=== PATIENT | female | born 1960 | race Caucasian/White ===

== ENCOUNTER 2022-11-14 09:17 | Outpatient (REF) | payer OTHER, SELFPAY ==
--- NOTE | ~2022-11-14 | MM_ITS ---
EXAMINATION: MM SCREENING DIGITAL BREAST TOMOSYNTHESIS, BILATERAL CLINICAL INFORMATION: Screening. Asymptomatic. The lifetime risk of breast cancer based on the Tyrer-Cuzick Model is 5.3%. COMPARISON: Mammography: This study is compared with prior mammograms dating back to 2018. TECHNIQUE: Digital breast tomosynthesis is performed in both the craniocaudal and mediolateral oblique views along with computer-aided detection (CAD). Synthesized 2D images are generated from the tomosynthesis. FINDINGS: There are scattered areas of fibroglandular density (ACR BI-RADS breast composition Category b). There are no significant masses, abnormal calcifications, or other abnormalities. MM/MM tomosynthesis screening BI IMPRESSION: No mammographic evidence of malignancy. ASSESSMENT: BI-RADS BI-RADS 1 - Negative RECOMMENDATION: Routine annual mammography screening. 1 year F/U This patient's information was entered into a reminder system with a target due date for their next mammogram.
--- NOTE | ~2022-11-14 | MM_ITS ---
EXAMINATION: BONE DENSITOMETRY CLINICAL INDICATION: Osteoporosis. COMPARISON: Previous BD dated 03/11/2019 and baseline BD dated 07/28/2014. TECHNIQUE: Using a [employer] DXA System (software version: 13.1) manufactured by [employer], dual-energy x-ray absorptiometry was performed of the lumbar spine and left hip. The images are of good technical quality. Summary results are attached. FINDINGS: LEFT FEMUR, NECK: Current: BMD 0.577 g/cm2, Z-score -1.8, T-score -3.3, osteoporosis. Prior: BMD 0.632 g/cm2. Baseline: BMD 0.716 g/cm2. LEFT FEMUR, TOTAL: Current: BMD 0.659 g/cm2, Z-score -1.6, T-score -2.8, osteoporosis, 2.1% decrease from previous, 14.3% decrease from baseline (<5% change is not significant). Prior: BMD 0.673 g/cm2. Baseline: BMD 0.769 g/cm2. AP SPINE L1-L4: Current: BMD 0.852 g/cm2, Z-score -1.1, T-score -2.7, osteoporosis, 3.5% decrease from previous, 10.2% decrease from baseline (<5% change is not significant). Prior: BMD 0.883 g/cm2. Baseline: BMD 0.949 g/cm2. IDENTIFIED RISK FACTORS: Menopause, family history (parental hip fracture), height loss. HISTORY OF FRACTURE: None listed. MEDICATIONS: Vitamin D. MM/XR DEXA axial skeleton IMPRESSION: 1. DIAGNOSIS: Osteoporosis based on the lowest T-score value of -3.3 in the femoral neck applying World Health Organization criteria. 2. 10-YEAR FRACTURE RISK PREDICTION, FRAX: According to the guidelines, FRAX calculation should only be performed on patients in the osteopenia bone density category. Therefore, FRAX was not performed on this patient. 3. Treatment Recommendations: NOF guidelines recommend consideration for treatment in postmenopausal women and men age 50 and older presenting with the following: -A hip or vertebral (clinical or morphometric) fracture. -T-score less than or equal to -2.5 at the femoral neck or spine after appropriate evaluation to exclude secondary causes. -Low bone mass at the hip or spine and a 10-year fracture probability by FRAX of greater than or equal to 3% for hip fracture or greater than or equal to 20% for major osteoporotic fracture based on the [place] adapted WHO algorithm. 4. Other Recommendations: All treatment decisions require clinical judgment and consideration of individual patient factors, including patient preferences, comorbidities, previous drug use, risk factors not captured in the FRAX model (e.g. frailty, falls, vitamin D deficiency, increased bone turnover, interval significant decline in bone density) and possible under or overestimation of fracture risk by FRAX. Additional medical evaluation for secondary cause of low bone mineral density may be appropriate. FUTURE SCAN RECOMMENDATION: People with diagnosed cases of osteoporosis or at high risk for fracture should have regular bone mineral density tests. For patients eligible for Medicare, routine testing is allowed once every 2 years. The testing frequency can be increased to one year for patients who have rapidly progressing disease, those who are receiving or discontinuing medical therapy to restore bone mass, or have additional risk factors.
== END 2022-11-14 09:18 | disposition home or self-care (01) ==
LOC: HO.MAMMO 09:17
PROVIDERS: PCP Internal Medicine Geriatric Medicine; Visit Provider Internal Medicine Geriatric Medicine
DX: Z12.31 Encounter for screening mammogram for malignant neoplasm of breast (principal); Z13.820 Encounter for screening for osteoporosis; Z78.0 Asymptomatic menopausal state; M81.0 Age-related osteoporosis without current pathological fracture
CPT/HCPCS: 77063; 77067; 77080

== ENCOUNTER → 2022-11-14 09:30 | Outpatient (BNV) | payer OTHER, SELFPAY | PROVIDERS: PCP Internal Medicine Geriatric Medicine; Visit Provider Radiology Diagnostic Radiology | DX: Z12.31 Encounter for screening mammogram for malignant neoplasm of breast (principal) | CPT/HCPCS: 77063; 77067 ==

== ENCOUNTER 2023-01-16 08:51 | Outpatient (AMB) | payer OTHER, SELFPAY ==
[2023-01-16 08:57] VITALS: BP 139/81; PULSE 98; BMI 26.0
--- NOTE | 2023-01-16 08:57 | MHC.OFFVIS ---
Intake Vital Signs 01/16/23 08:57 Height 5 ft 1.5 in Weight 139 lb 12.369 oz BMI 26.0 BP 139/81 Blood Pressure Location Lt brachial Position Sitting Pulse 98 Intake Visit Reasons: pre colonoscopy screening Intake Note: Celina presents in office as a new.patient for a colonoscopy screening. PT CC: pt report having no concerns , 2nd colo pt denies any other GI Issues Nitrating Acid Mixer Required: No Accompanied by: Self / Same As Patient Allergies No Known Allergies Allergy (Verified 01/16/23 08:59) HPI pre colonoscopy screening HPI Details 62 year old? female here today for pre colonoscopy screening.? Patient was sent to us by her PCP.? Patient reports she had upper endoscopy and colonoscopy over 10 years ago. Patient does not remember she had any polyps or not, however she states that she was diagnosed with Corona's esophagus. Patient currently is on Nexium. Patient denies any dyspepsia, dysphagia or odynophagia.? Patient denies melena, hematochezia, unintentional weight loss or ribbon like stools. Patient has a family history of colorectal cancer. Patient states that her mother had a colon cancer. Had colon resection. Denies history of difficulty with sedation or anesthesia in the past.? Negative for history of sleep apnea.? Denies any history of cardiac, renal, pulmonary, or hepatic disease.?? No history of infectious? diseases like hepatitis A, B, C, HIV or tuberculosis.? Patient is not on any anticoagulation therapy. [facility] Medical History (Updated 01/16/23 @ 09:32 by Zhanna Hinkle [facility]) History of Corona's esophagus Surgical History (Updated 01/16/23 @ 09:05 by Abimael Hunter) History of suburethral sling procedure Family History (Updated 01/16/23 @ 09:05 by Abimael Hunter) Mother HTN (hypertension) Heart disease Kidney failure Colon cancer Father Stomach ulcer Anemia Arthritis Social History (Updated 01/16/23 @ 09:01 by Abimael Hunter) Household Members: Other Alcohol intake: never Patient Tobacco Use Status: Never used Tobacco Use of substances other than those prescribed or required for medical reasons: No Review of Systems Const Denies weight gain and Denies weight loss ENT Reports no additional complaints, Denies dysphagia and Denies odynophagia Card Reports no additional complaints Resp Reports no additional complaints GI Denies abdominal pain, Denies belching, Denies melena, Denies bloating, Denies change in bowel habits, Denies dysphagia, Denies excessive flatus, Denies dyspepsia, Denies heartburn, Denies diarrhea, Denies loose stools, Denies nausea, Denies odynophagia and Denies vomiting Musc Reports no additional complaints Neuro Reports no additional complaints Psych Reports no additional complaints Endo Reports no additional complaints Physical Exam Vital Signs: Last Vital Signs Pulse 98 01/16/23 08:57 BP 139/81 01/16/23 08:57 BMI result Body Mass Index 26.0 Const General: healthy appearing, no acute distress and well developed Nutritional Appearance: well nourished Orientation/consciousness: patient oriented x3 HEENT Head: Yes normal to inspection, Yes normocephalic and Yes atraumatic Face and sinus: Yes normal facial exam Mouth: Normal oral and palatal mucosa present Throat: Yes posterior oropharynx normal, Yes tonsils normal and Yes uvula midline Eyes General: appearance normal, both eyes and all related structures Neck Neck: Yes normal visual inspection, Yes full ROM and Yes trachea midline Thyroid: Thyroid normal Resp Effort & Inspection: normal respiratory effort, able to speak in complete sentences, no tracheal deviation and symmetric chest movement Auscultation: clear to auscultation bilaterally Cardio Rate: regular rate Heart sounds: S1 normal heart sound present and S2 normal heart sound present GI Inspection: Yes normal to inspection and No distended Palpation (GI): Soft to palpation, not firm, nontender and No hepatosplenomegaly present Auscultation: normal bowel sounds General: Yes no CVA tenderness Back/Spine/Pelvis Back: no CVA tenderness Skin General skin exam: elasticity normal, turgor normal and dry skin Neuro General: patient oriented x3 Psych Appearance: grossly normal Mental Status: mental status grossly normal Speech and movement: Normal speech and movement present Assessment & Plan Assessment & Plan (1) Screen for colon cancer: Code(s): Z12.11 - Encounter for screening for malignant neoplasm of colon Plan: Patient denies any GI, cardiac or respiratory symptoms.? Denies any issues with anesthesia in the past.? Denies any history of sleep apnea.? No history infectious diseases in the past or present.? Not on any anticoagulation therapy.? Patient's mother was a diagnosed with colorectal cancer and had colon resection.? Patient denies melena, hematochezia, unintentional weight loss or ribbon like stools.? Discussed at length the pre-procedure,? prep, diet & medications as well as what to expect prior, during and after the procedure.?? Stressed the importance of good bowel prep. ?Recommended the use of Vaseline or Calmoseptine OTC & baby wipes with bowel movements to promote comfort.? (2) History of Corona's esophagus: Code(s): Z87.19 - Personal history of other diseases of the digestive system Plan: Patient reports that she was diagnosed with Corona's esophagus over 10 years ago upper endoscopy. Procedure was done at [facility]. Patient will try to get records. Will send patient for upper endoscopy as well. Patient has been on Nexium for very long time. Patient denies any dysphagia, dyspepsia or odynophagia. I will see her after the procedure, sooner on as needed basis. Patient is agreeable to this plan and verbalizes understanding of instructions. She was given the opportunity to ask questions and all questions answered. Thank you for allowing me to participate in her care Medications: New bisacodyl (Dulcolax (bisacodyl)) take 2 tabs at noon the day before your colonoscopy 10 mg (2 x 5 mg) PO ONCE 1 day 2 tabs 0RF Z12.11 - Encounter for screening for malignant neoplasm of colon polyethylene glycol 3350 (Miralax) As directed by gastroenterology department at [facility] 238 grams PO ONCE 238 grams 0RF Z12.11 - Encounter for screening for malignant neoplasm of colon Coding Level of Care Code New Pt Level 3 (94405) Diagnoses Screen for colon cancer Z12.11 History of Corona's esophagus Z87.19 Time Spent (min) 40 Comment 30 minutes spent with patient and additional 10 minutes spent reviewing her records
== END 2023-01-16 09:36 | disposition home or self-care (01) ==
PROVIDERS: PCP Internal Medicine Geriatric Medicine; Visit Provider Nurse Practitioner Family
DX: Z12.11 Encounter for screening for malignant neoplasm of colon (principal); Z87.19 Personal history of other diseases of the digestive system; Z01.818 Encounter for other preprocedural examination
CPT/HCPCS: 99203

== ENCOUNTER → 2023-01-16 08:51 | Outpatient (BNVA) | payer OTHER, SELFPAY | PROVIDERS: PCP Internal Medicine Geriatric Medicine; Visit Provider Nurse Practitioner Family ==

== ENCOUNTER 2023-06-12 10:01 | Outpatient (REF) | payer OTHER, SELFPAY ==
[2023-06-12 12:32] LABS: Alanine Aminotransferase 20 U/L (0-31); Albumin Level 4.2 g/dL (3.5-5.0); Alkaline Phosphatase 82 U/L (39-117); Anion Gap 13 (12-20); Aspartate Amino Transferase 18 U/L (5-31); Bilirubin Total 0.5 mg/dL (0.0-1.0); Blood Urea Nitrogen 11 mg/dL (9-16); Calcium 9.1 mg/dL (8.4-10.2); Carbon Dioxide 25 mmol/L (22-29); Chloride 107 mmol/L (96-108); Cholesterol 183 mg/dL (<200); Estimated Glomerular Filt Rate > 60; Glucose Random 96 mg/dL (60-115); HDL Cholesterol 66 mg/dL (>40); LDL Cholesterol Calculated 101 mg/dL (<100); Potassium 3.7 mmol/L (3.3-5.1); Sodium 141 mmol/L (135-145); Total Protein 7.2 g/dL (6.5-8.0); Triglycerides 82 mg/dL (<150)
== END 2023-06-12 10:02 | disposition home or self-care (01) ==
LOC: HO.HHCL 10:01
PROVIDERS: Visit Provider Internal Medicine Geriatric Medicine
DX: Z00.00 Encounter for general adult medical examination without abnormal findings (principal); M81.0 Age-related osteoporosis without current pathological fracture; E78.5 Hyperlipidemia, unspecified
CPT/HCPCS: 36415; 80053; 80061

== ENCOUNTER 2023-06-12 11:06 | Day surgery (SDC) | payer OTHER, SELFPAY ==
[2023-06-10 15:03] VITALS: BMI 27.7
[2023-06-12 12:08] VITALS: BMI 27.1
[2023-06-12 12:33] VITALS: BP 138/79; PULSE 92; RESP 16; TEMP 36.7; O2SAT 96
[2023-06-12] MEDS: Lactated Ringers 1,000 ML 80 ML IVCONT (12:36)
--- NOTE | 2023-06-12 12:41 | HO.ANESPROP2 ---
[facility] Active Problems Active Problems: All Active Problems (Updated 06/10/23 @ 15:03 by Renae Mejia RN) History of Corona's esophagus (Acute) Past Medical History Medical History (Updated 06/10/23 @ 15:03 by Renae Mejia RN) Osteoporosis Elevated cholesterol History of Corona's esophagus Family History Family History (Updated 01/16/23 @ 09:05 by Abimael Hunter) Mother HTN (hypertension) Heart disease Kidney failure Colon cancer Father Stomach ulcer Anemia Arthritis Surgical History Surgical History (Updated 01/16/23 @ 09:05 by Abimael Hunter) History of suburethral sling procedure History of Problems with Anesthesia: No Social History Social History (Updated 01/16/23 @ 09:01 by Abimael Hunter) Household Members: Other Alcohol intake: never Patient Tobacco Use Status: Never used Tobacco Use of substances other than those prescribed or required for medical reasons: No Are you DNR?: No Advance Directives: No Advance Directives Information Provided: Yes Meds Allergies Allergy/AdvReac Type Severity Reaction Status Date / Time No Known Allergies Allergy Verified 06/12/23 12:16 Active Medications: Current Medications Lactated Ringer's (Lr) 1,000 mls @ 80 mls/hr IVCONT .[id number] SATINDER Last Admin: 06/12/23 12:36 Dose: 80 mls/hr Home Medications Medication Instructions Recorded Confirmed Last Taken Type atorvastatin 20 mg tablet 20 mg PO DAILY 01/16/23 06/12/23 06/12/23 History esomeprazole magnesium 20 mg 20 mg PO DAILY 01/16/23 06/12/23 06/12/23 History capsule,delayed release (Nexium) Exam Height,Weight and Vital Signs: Height 5 ft Weight 63.049 kg Last Vital Signs Temp 98.1 F 06/12/23 12:33 Pulse 92 06/12/23 12:33 Resp 16 06/12/23 12:33 BP 138/79 06/12/23 12:33 Pulse Ox 96 06/12/23 12:33 O2 Del Method Room Air 06/12/23 12:33 Airway Mallampati Class: II TM Dist: >3cm Neck ROM: Full Loose/Missing/Broken Teeth: No Heart: RRR Lungs: CTA Assessment and Plan Assessment Anesthesia Assessment: Anesthesia Plan Discussed and Chart Reviewed Final Anesthetic Review History of Problems with Anesthesia: No NPO: Yes ASA Class: II Final Preanesthetic Review: Meds/Allgs Chart Reviewed, Consent Obtained/Reviewed and Anes Risks/Benef Reviewed Patient Risk: Low Procedure Risk: Intermediate Anesthetic Plan Anesthetic Plan: MAC: Disposition: Standard PACU
--- NOTE | 2023-06-12 13:57 | MHC.SHP ---
Pre-Procedural Eval Section A - 24 Hr Update-Section A only Date of Service: 06/12/23 The patient is an INPATIENT: No The patient has been examined within 24 hours of the surgical procedure. The History & Physical has been completed within 30 days and I have reviewed it.: No Section B - Complete if H&P > 30 days Chief Complaint: Colon cancer screening, follow-up of Corona's Relevant Family History (Specify if Yes): Yes Relevant Social History: None Present Medications: see Short Stay Collaborative assessment Medical History: Significant History (Osteoporosis, elevated cholesterol, Corona's esophagus) History of Previous Operations: Relevant previous surgery/procedure and date(s) (History of suburethral sling procedure) Allergies: Allergies Allergy/AdvReac Type Severity Reaction Status Date / Time No Known Allergies Allergy Verified 06/12/23 12:16 Review of Systems Sugical H&P ROS: Negative: Constitution, Cardiovascular, Respiratory and Gastrointestinal Exam Surgical H&P Exam: Normal: Heart, Normal: Lungs, Normal: Extremities and Normal: Abdomen Plan Diagnosis/Plan: Unchanged I have reviewed the history and physical and performed a pertinent physical examination on my patient. No changes have occurred unless specified. Time Spent With Patient Time: Total time managing care of this patient today ____ minutes.
--- NOTE | 2023-06-12 14:26 | P.OP_ITS ---
Operative Note Operative Note Date of Service: 06/12/23 Narrative: FLEXIBLE TRANSORAL UPPER GASTROINTESTINAL ENDOSCOPY WITH BIOPSIES AND COLONOSCOPY TILL CECUM WITH BIOPSIES AND SNARE POLYPECTOMY Pre-op diagnosis: Colon cancer screening, follow-up of Corona's Post-op diagnosis: GERD, gastritis, gastric polyps, colon polyps, diverticulosis? Endoscopist:? Odette Hayes MD Anesthesia:?MAC UPPER ENDOSCOPY Consent: Indications for the procedure and potential complications of bleeding, perforation, reaction to medications and missed diagnosis were discussed with the patient and informed consent was obtained. Instrument: Olympus GIF H 190 mid size upper endoscope Monitoring: Vital signs and clinical assessment, continuous EKG monitoring, Pulse oximetry, Carbon Dioxide monitoring and blood pressure monitoring were done throughout the procedure. Procedure: The patient was placed in the left lateral decubitis position and pre-procedure medications were administered and a bite block was placed. The endoscope was inserted into the mouth and advanced under direct vision to the third part of duodenum. A careful inspection was made as the upper endoscope was withdrawn including a retroflexed examination of the proximal stomach; Findings and interventions are described below. Findings: Larynx: Normal Esophagus: GE junction at 35 cms. Irregular Z line with two 5-6 mm tongues of possible Corona's - biopsies were obtained. Stomach: A few 5 to 10 mm benign appearing polyps in the gastric body - biopsied. Moderate diffuse gastric erythema. Biopsies were obtained. Grade 2 flap valve on retroflexed examination of the cardia. Duodenum: Normal bulb and descending duodenum Intervention: Biopsies as noted above COLONOSCOPY PROCEDURE NOTE Consent: Indications for the procedure and potential complications of bleeding, perforation, reaction to medications and missed diagnosis were discussed with the patient and informed consent was obtained. Instrument: Olympus PCF H 190 L variable stiffness pediatric colonoscope Monitoring: Vital signs and clinical assessment, intermittent blood pressure monitoring, continuous EKG monitoring, Pulse oximetry and Carbon Dioxide monitoring were done throughout the procedure. Colon withdrawl time was 26 minutes. Procedure: The patient was placed in the left lateral decubitis position and pre-procedure medications were administered. After a digital rectal examination of the ano-rectum, the video colonoscope was inserted into the rectum and advanced through the colon to the cecum. The colonoscope was slowly withdrawn in a retrograde panoramic fashion and the colon mucosa was carefully examined including a retroflexed view of the rectum. Findings and interventions are described below. Procedure Difficulty: : Without difficulty Findings: Terminal Ileum: Not evaluated Cecum: A 3-4 mm sessile polyp - removed with a cold biopsy. Ascending Colon: A 10-12 mm sessile polyp on a short pedicle - removed with a hot snare. Polypectomy site was closed with 1 hemoclip. A 10-12 mm flat polyp at 65 cms. Polyp was raised with 5 cc of Eleview and removed with a hot snare. Polypectomy site was closed with 1 hemoclip. Transverse Colon: Normal Descending Colon: Moderate diverticulosis Sigmoid Colon: A 4-5 mm sessile polyp - removed with a cold biopsy Moderate diverticulosis Rectum: Normal Ano-rectum: Moderate internal hemorrhoids Colon preparation: Good after copious irrigation Impression and Post Procedure Diagnosis: Endoscopy Findings: ESOPHAGUS: Irregular Z line with two 5-6 mm tongues of possible Corona's - biopsies were obtained STOMACH: Diffuse gastritis and benign appearing gastric polyps Colonoscopy Findings: Two small and two medium sized polyps removed Moderate diverticulosis seen in the left colon Plan: Await pathology results Patient has an appointment on 06/26/23 in the GI Clinic with Zhanna Hinkle FNP- [facility]. Repeat Colonoscopy interval based on path results - in 3-5 years if polyps are adenomatous and 10 years if polyps are hyperplastic. Above findings were reviewed with the patient and Gastric polyps, colon polyps and diverticulosis handouts were given in the discharge area
[2023-06-12 15:10] VITALS: BP 108/69; PULSE 76; RESP 16; TEMP 37.1; O2SAT 99
[2023-06-12 15:25] VITALS: BP 130/73; PULSE 77; RESP 16; TEMP 36.3; O2SAT 99
== END 2023-06-12 15:50 | disposition home or self-care (01) ==
PROVIDERS: PCP Internal Medicine Geriatric Medicine; Visit Provider Internal Medicine Gastroenterology
PROC: (CPT 43239; principal; 2023-06-12 13:50)
DX: K29.60 Other gastritis without bleeding (principal); K31.7 Polyp of stomach and duodenum; K22.9 Disease of esophagus, unspecified; K21.9 Gastro-esophageal reflux disease without esophagitis; Z87.19 Personal history of other diseases of the digestive system; Z12.11 Encounter for screening for malignant neoplasm of colon; D12.2 Benign neoplasm of ascending colon; K57.30 Diverticulosis of large intestine without perforation or abscess without bleeding; K64.8 Other hemorrhoids; E78.5 Hyperlipidemia, unspecified; Z79.02 Long term (current) use of antithrombotics/antiplatelets; Z79.899 Other long term (current) drug therapy
CPT/HCPCS: 43239; 45385; 45380; 45381; 88305; 88313; 88342; J2704

== ENCOUNTER → 2023-06-12 11:06 | Outpatient (BNV) | payer OTHER, SELFPAY | PROVIDERS: PCP Internal Medicine Geriatric Medicine; Visit Provider Internal Medicine Gastroenterology | DX: Z12.11 Encounter for screening for malignant neoplasm of colon (principal); K21.9 Gastro-esophageal reflux disease without esophagitis; K31.7 Polyp of stomach and duodenum; K57.30 Diverticulosis of large intestine without perforation or abscess without bleeding; D12.0 Benign neoplasm of cecum; D12.2 Benign neoplasm of ascending colon; D12.5 Benign neoplasm of sigmoid colon; K64.8 Other hemorrhoids | CPT/HCPCS: 43239; 45380; 45381; 45385 ==

== ENCOUNTER 2023-06-26 09:52 | Outpatient (AMB) | payer OTHER, SELFPAY ==
--- NOTE | 2023-06-26 10:04 | A.OFFVIS_ITS ---
Intake Vital Signs 06/26/23 10:29 Height 5 ft BP 117/72 Blood Pressure Location Lt brachial Position Sitting Pulse 82 Intake Visit Reasons: s/p egd/colon Intake Note: Pt c/o; reports no complaints at this time. Information Officer Required: No Accompanied by: Self / Same As Patient Allergies No Known Allergies Allergy (Verified 06/26/23 10:30) HPI s/p egd/colon HPI Details LAST VISIT: Screen for colon cancer Patient denies any GI, cardiac or respiratory symptoms.? Denies any issues with anesthesia in the past.? Denies any history of sleep apnea.? No history infectious diseases in the past or present.? Not on any anticoagulation therapy.? Patient's mother was a diagnosed with colorectal cancer and had colon resection.? Patient denies melena, hematochezia, unintentional weight loss or ribbon like stools.? Discussed at length the pre-procedure,? prep, diet & medications as well as what to expect prior, during and after the procedure.?? Stressed the importance of good bowel prep. ?Recommended the use of Vaseline or Calmoseptine OTC & baby wipes with bowel movements to promote comfort.? History of Corona's esophagus Patient reports that she was diagnosed with Corona's esophagus over 10 years ago upper endoscopy. Procedure was done at [facility]. Patient will try to get records. Will send patient for upper endoscopy as well. Patient has been on Nexium for very long time. Patient denies any dysphagia, dyspepsia or odynophagia. I will see her after the procedure, sooner on as needed basis. Patient is agreeable to this plan and verbalizes understanding of instructions. She was given the opportunity to ask questions and all questions answered. ? Thank you for allowing me to participate in her care Plan Medications New bisacodyl (Dulcolax (bisacodyl)) take 2 tabs at noon the day before your colonoscopy 10 mg (2 x 5 mg) PO ONCE 1 day 2 tabs 0RF Z12.11 - Encounter for screening for malignant neoplasm of colon polyethylene glycol 3350 (Miralax) As directed by gastroenterology department at [facility] 238 grams PO ONCE 238 grams 0RF Z12.11 - Encounter for screening for malignant neoplasm of colon UPPER ENDOSCOPY AND COLONOSCOPY Upper endoscopy Findings: Larynx: Normal Esophagus: GE junction at 35 cms. Irregular Z line with two 5-6 mm tongues of possible Corona's - biopsies were obtained. Stomach: A few 5 to 10 mm benign appearing polyps in the gastric body - biopsied. Moderate diffuse gastric erythema. Biopsies were obtained. Grade 2 flap valve on retroflexed examination of the cardia. Duodenum: Normal bulb and descending duodenum Intervention: Biopsies as noted above Colonoscopy Findings: Terminal Ileum: Not evaluated Cecum: A 3-4 mm sessile polyp - removed with a cold biopsy. Ascending Colon: A 10-12 mm sessile polyp on a short pedicle - removed with a hot snare. Polypectomy site was closed with 1 hemoclip. A 10-12 mm flat polyp at 65 cms. Polyp was raised with 5 cc of Eleview and removed with a hot snare. Polypectomy site was closed with 1 hemoclip. Transverse Colon: Normal Descending Colon: Moderate diverticulosis Sigmoid Colon: A 4-5 mm sessile polyp - removed with a cold biopsy Moderate diverticulosis Rectum: Normal Ano-rectum: Moderate internal hemorrhoids Colon preparation: Good after copious irrigation Impression and Post Procedure Diagnosis: Endoscopy Findings: ESOPHAGUS: Irregular Z line with two 5-6 mm tongues of possible Corona's - biopsies were obtained STOMACH: Diffuse gastritis and benign appearing gastric polyps Colonoscopy Findings: Two small and two medium sized polyps removed Moderate diverticulosis seen in the left colon Plan: Await pathology results Repeat Colonoscopy interval based on path results - in 3-5 years if polyps are adenomatous and 10 years if polyps are hyperplastic. PATHOLOGY RESULTS Diagnosis A. Stomach, antrum, biopsy: - Antral-type mucosa with moderate chron ic inactive inflammation - Rare forms consistent with H. pylori i dentified. B. Stomach, polyp: - Hyperplastic mucosal polyp with inflam matory changes; negative for dysplasia. - Rare forms consistent with H. pylori i dentified. C. Stomach, body, biopsy: Oxyntic mucosa with severe chronic active inflammation; negative for H. pylori. D. Esophagus, distal, biopsy: - Cardiofundic-type mucosa with moderate chronic active inflammation; no intestinal metaplasia seen. - Active esophagitis (maximum eosinophil count 3 per high powered field). E. Cecum, polypectomy: Inflammatory polyp. F. Colon, ascending, polypectomy: Tubular adenoma; negative for high-grade dysplasia or carcinoma. G. Colon, ascending at 65 cm, polypectomy: Colonic mucosa with mild surface hyperplastic changes. H. Colon, transverse, polypectomy: Colonic mucosa with mild surface hyperplastic changes TODAY'S VISIT: Patient is here today for follow-up and to discuss upper endoscopy and colonoscopy results. Patient denies any ill effects from the prep, anesthesia or procedure itself. Biopsy results discussed with patient. Medium size tubular adenoma without high-grade dysplasia or carcinoma found in ascending colon. Cecum, and transverse colon hyperplastic polyp. Patient reports occasional acid reflux, states that Nexium has been helpful. H pylori found with mild esophagitis. Barretts not identified on biopsy. Patient reports occasional dyspepsia without dysphagia or odynophagia. Patient denies any melena, hematochezia, unintentional weight loss or ribbon like stools. Patient reports that she has been moving her bowels well without any issues. [facility] Medical History (Updated 06/28/23 @ 16:23 by Zhanna Hinkle [facility]) Diverticulosis Tubular adenoma of colon Osteoporosis Elevated cholesterol History of Corona's esophagus Surgical History History of suburethral sling procedure Family History Mother HTN (hypertension) Heart disease Kidney failure Colon cancer Father Stomach ulcer Anemia Arthritis Social History Household Members: Other Alcohol intake: never Patient Tobacco Use Status: Never used Tobacco Review of Systems Const Denies weight gain and Denies weight loss ENT Reports no additional complaints, Denies dysphagia and Denies odynophagia Card Reports no additional complaints Resp Reports no additional complaints GI Denies abdominal pain, Denies belching, Denies melena, Reports bloating (Occasional), Denies hematochezia, Denies change in bowel habits, Denies dyspha robert, Denies excessive flatus, Reports dyspepsia (Occasional), Reports heartburn (Occasional), Denies diarrhea, Denies loose stools, Denies nausea, Denies odynophagia and Denies vomiting Reports no additional complaints Musc Reports no additional complaints Neuro Reports no additional complaints Psych Reports no additional complaints Endo Reports no additional complaints Physical Exam Vital Signs: Last Vital Signs Pulse 82 06/26/23 10:29 BP 117/72 06/26/23 10:29 Const General: healthy appearing, no acute distress and well developed Nutritional Appearance: well nourished Orientation/consciousness: patient oriented x3 Resp Effort & Inspection: normal respiratory effort, able to speak in complete sentences, no tracheal deviation and symmetric chest movement Auscultation: clear to auscultation bilaterally Cardio Rate: regular rate GI Inspection: Yes normal to inspection and No distended Palpation (GI): Soft to palpation, not firm, nontender and No hepatosplenomegaly present Auscultation: normal bowel sounds General: Yes no CVA tenderness Back/Spine/Pelvis Back: no CVA tenderness Skin General skin exam: elasticity normal, turgor normal and dry skin Neuro General: patient oriented x3 Psych Appearance: grossly normal Mental Status: mental status grossly normal Assessment & Plan Assessment & Plan (1) Helicobacter pylori (H. pylori): Code(s): A04.8 - Other specified bacterial intestinal infections (2) History of Corona's esophagus: Code(s): Z87.19 - Personal history of other diseases of the digestive system (3) Gastritis: Code(s): K29.70 - Gastritis, unspecified, without bleeding Qualifiers: Gastritis type: other gastritis Chronicity: chronic Gastritis b leeding: without bleeding Qualified Code(s): K29.50 - Unspecified chronic gastritis without bleeding (4) GERD (gastroesophageal reflux disease): Code(s): K21.9 - Gastro-esophageal reflux disease without esophagitis Qualifiers: Esophagitis presence: with esophagitis Esophagitis bleeding: without hemorrhage Qualified Code(s): K21.00 - Gastro-esophageal reflux disease with esophagitis, without bleeding (5) Tubular adenoma of colon: Code(s): D12.6 - Benign neoplasm of colon, unspecified (6) Diverticulosis: Code(s): K57.90 - Diverticulosis of intestine, part unspecified, without perforation or abscess without bleeding Plan Chronic gastritis most likely caused by H pylori bacteria. Patient will be treated with quadruple therapy and we will retest her for eradication of bacteria. Patient will increase Nexium to twice a day. Esophagitis with small eosinophilic count. Will send patient for RAST allergen testing. She was encouraged to avoid dietary triggers and late night snacking. Staying upright for minimal 3 hours after meals discussed with patient. Tubular adenoma without high-grade dysplasia found larger than 1 cm. Patient will return for colonoscopy in 3-5 years, sooner if clinically necessary. Patient will return in 6 weeks to recheck for H pylori. Patient will stop Nexium 2 weeks before the test. One hr NPO before testing. Patient denies any melena, hematochezia, unintentional weight loss or ribbon like stools. Moderate diverticulosis in sigmoid colon. Patient was encouraged to increase fiber in her diet. List of food high in fiber given to patient. Patient is agreeable to this plan and verbalizes understanding of instructions. She was given the opportunity to ask questions and all questions answered. Thank you for allowing me to participate in her care Orders: Orders Rast Allergen 06/26/23 K21.9 - Gastro-esophageal reflux disease without esophagitis Medications: New bismuth subsalicylate 2 tabs PO QID 14 days 112 tabs 0RF A04.8 - Other specified bacterial intestinal infections metronidazole 1,000 mg (2 x 500 mg) PO BID 56 tabs 0RF A04.8 - Other specified bacterial intestinal infections tetracycline 1,000 mg (2 x 500 mg) PO Q12H 56 caps 0RF A04.8 - Other specified bacterial intestinal infections Changed From esomeprazole magnesium (Nexium) 20 mg PO DAILY A04.8 - Other specified bacterial intestinal infections To esomeprazole magnesium (Nexium) 20 mg PO BID 14 days 28 caps 0RF A04.8 - Other specified bacterial intestinal infections Coding Level of Care Code Est Pt Level 4 (59820) Diagnoses Helicobacter pylori (H. pylori) A04.8 History of Corona's esophagus Z87.19 Other chronic gastritis without hemorrhage K29.50 Gastritis type: other gastritis Chronicity: chronic Gastritis bleeding: without bleeding Gastroesophageal reflux disease with esophagitis without hemorrhage K21.00 Esophagitis presence: with esophagitis Esophagitis bleeding: without hemorrhage Tubular adenoma of colon D12.6 Diverticulosis K57.90 Time Spent (min) 35 Comment 25 minutes spent with patient and additional 10 minutes spent reviewing her records
[2023-06-26 10:29] VITALS: BP 117/72; PULSE 82
== END 2023-06-26 10:51 | disposition home or self-care (01) ==
PROVIDERS: PCP Internal Medicine Geriatric Medicine; Visit Provider Nurse Practitioner Family
DX: A04.8 Other specified bacterial intestinal infections (principal); Z87.19 Personal history of other diseases of the digestive system; K29.50 Unspecified chronic gastritis without bleeding; K21.00 Gastro-esophageal reflux disease with esophagitis, without bleeding; D12.6 Benign neoplasm of colon, unspecified; K57.90 Diverticulosis of intestine, part unspecified, without perforation or abscess without bleeding
CPT/HCPCS: 99214

== ENCOUNTER 2023-06-26 09:52 | Outpatient (REF) | payer OTHER, SELFPAY | END 2023-06-26 09:53 | disposition home or self-care (01) | LOC: HO.LAB 09:52 | PROVIDERS: PCP Internal Medicine Geriatric Medicine; Visit Provider Nurse Practitioner Family | DX: Z91.09 Other allergy status, other than to drugs and biological substances (principal); K21.9 Gastro-esophageal reflux disease without esophagitis | CPT/HCPCS: 36415; 86003 ==

== ENCOUNTER 2023-08-07 10:43 | Outpatient (AMB) | payer OTHER, SELFPAY ==
--- NOTE | 2023-08-07 10:49 | A.OFFVIS_ITS ---
Intake Vital Signs 08/07/23 10:50 Height 5 ft Weight 138 lb BMI 26.9 BP 115/69 Blood Pressure Location Lt brachial Position Sitting Pulse 98 Intake Visit Reasons: 6 week follow up Intake Note: Patient 6 week follow up for Patient denies any GI issues. 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 pylori) History of Corona's esophagus Gastritis GERD (gastroesophageal reflux disease) Tubular adenoma of colon Diverticulosis Plan Chronic gastritis most likely caused by H pylori bacteria. Patient will be treated with quadruple therapy and we will retest her for eradication of bacteria. Patient will increase Nexium to twice a day. Esophagitis with small eosinophilic count. Will send patient for RAST allergen testing. She was encouraged to avoid dietary triggers and late night snacking. Staying upright for minimal 3 hours after meals discussed with patient. Tubular adenoma without high-grade dysplasia found larger than 1 cm. Patient will return for colonoscopy in 3-5 years, sooner if clinically necessary. Patient will return in 6 weeks to recheck for H pylori. Patient will stop Nexium 2 weeks before the test. One hr NPO before testing. Patient denies any melena, hematochezia, unintentional weight loss or ribbon like stools. Moderate diverticulosis in sigmoid colon. Patient was encouraged to increase fiber in her diet. List of food high in fiber given to patient. Patient is agreeable to this plan and verbalizes understanding of instructions. She was given the opportunity to ask questions and all questions answered. ? Thank you for allowing me to participate in her care Orders Orders Rast Allergen 06/26/23 K21.9 Medications New bismuth subsalicylate 2 tabs PO QID 14 days 112 tabs 0RF A04.8 metronidazole 1,000 mg (2 x 500 mg) PO BID 56 tabs 0RF A04.8 tetracycline 1,000 mg (2 x 500 mg) PO Q12H 56 caps 0R F A04.8 Changed Changed From esomeprazole magnesium (Nexium) 20 mg PO DAILY A04.8 Changed To esomeprazole magnesium (Nexium) 20 mg PO BID 14 days 28 caps 0RF A04.8 TODAY'S VISIT: Patient is here today for follow-up and for H pylori retesting. Patient states that she completed 2 week treatment of antibiotics to treat H pylori found on upper endoscopy confirmed by biopsy. Patient was of Nexium for 2 weeks except she took Nexium this morning. Patient states that she forgot. Patient reports to be feeling well. Denies any dyspepsia, dysphagia or odynophagia. Denies any abdominal pain or discomfort. Patient denies any GI concerning symptoms today. [facility] Medical History (Updated 06/28/23 @ 16:23 by Zhanna Hinkle, [facility]) Diverticulosis Tubular adenoma of colon Osteoporosis Elevated cholesterol History of Corona's esophagus Surgical History History of suburethral sling procedure Family History Mother HTN (hypertension) Heart disease Kidney failure Colon cancer Father Stomach ulcer Anemia Arthritis Social History Household Members: Other Alcohol intake: never Patient Tobacco Use Status: Never used Tobacco Review of Systems Const Denies weight gain and Denies weight loss ENT Reports no additional complaints, Denies dysphagia and Denies odynophagia Card Reports no additional complaints Resp Reports no additional complaints GI Denies abdominal pain, Denies belching, Denies melena, Denies bloating, Denies change in bowel habits, Denies dysphagia, Denies excessive flatus, Denies dyspepsia, Denies heartburn, Denies diarrhea, Denies loose stools, Denies nausea, Denies odynophagia and Denies vomiting Musc Reports no additional complaints Neuro Reports no additional complaints Psych Reports no additional complaints Endo Reports no additional complaints Physical Exam Vital Signs: Last Vital Signs Pulse 98 08/07/23 10:50 BP 115/69 08/07/23 10:50 BMI result Body Mass Index 26.9 Const General: healthy appearing, no acute distress and well developed Nutritional Appearance: well nourished Orientation/consciousness: patient oriented x3 Resp Effort & Inspection: normal respiratory effort, able to speak in complete sent ences, no tracheal deviation and symmetric chest movement Auscultation: clear to auscultation bilaterally Cardio Rate: regular rate GI Inspection: Yes normal to inspection and No distended Palpation (GI): Soft to palpation, not firm, nontender and No hepatosplenomegaly present Auscultation: normal bowel sounds General: Yes no CVA tenderness Back/Spine/Pelvis Back: no CVA tenderness Skin General skin exam: elasticity normal, turgor normal and dry skin Neuro General: patient oriented x3 Psych Appearance: grossly normal Mental Status: mental status grossly normal Affect: normal affect Assessment & Plan Assessment & Plan (1) History of Corona's esophagus: Code(s): Z87.19 - Personal history of other diseases of the digestive system (2) Helicobacter pylori (H. pylori): Code(s): A04.8 - Other specified bacterial intestinal infections (3) Gastritis: Code(s): K29.70 - Gastritis, unspecified, without bleeding Qualifiers: Gastritis type: unspecified gastritis Chronicity: chronic Gastritis bleeding: without bleeding Qualified Code(s): K29.50 - Unspecified chronic gastritis without bleeding (4) GERD (gastroesophageal reflux disease): Code(s): K21.9 - Gastro-esophageal reflux disease without esophagitis Qualifiers: Esophagitis presence: with esophagitis Esophagitis bleeding: without hemorrhage Qualified Code(s): K21.00 - Gastro-esophageal reflux disease with esophagitis, without bleeding Plan Patient will hold Nexium for now till she does breath test to check for H pylori. She can take famotidine, however stop famotidine 24-48 hours before be test. Will treat empirically if positive. Continue avoiding dietary triggers and late night snacking. Staying upright for minimum 3 hours after meals discussed with patient. Patient will return to our office in 6 months, sooner on as needed basis. She is agreeable to this plan and verbalizes understanding of instructions. She was given the opportunity to ask questions and all questions answered. Thank you for allowing me to participate in her care Medications: New famotidine (Pepcid) 20 mg PO DAILY 30 tabs 3RF K21.9 - Gastro-esophageal reflux disease without esophagitis Changed From esomeprazole magnesium (Nexium) 20 mg PO BID 14 days 28 caps 0RF A04.8 - Other specified bacterial intestinal infections To esomeprazole magnesium (Nexium) 20 mg PO DAILY 30 caps 2RF A04.8 - Other specified bacterial intestinal infections Discontinued bismuth subsalicylate Discontinued Reason: Doctor's Order 2 tabs PO QID 14 days 112 tabs 0RF A04.8 - Other specified bacterial intestinal infections metronidazole Discontinued Reason: Doctor's Order 1,000 mg (2 x 500 mg) PO BID 56 tabs 0RF A04.8 - Other specified bacterial intestinal infections tetracycline Discontinued Reason: Doctor's Order 1,000 mg (2 x 500 mg) PO Q12H 56 caps 0RF A04.8 - Other specified bacterial intestinal infections Coding Level of Care Code Est Pt Level 3 (30920) Diagnoses History of Corona's esophagus Z87.19 Helicobacter pylori (H. pylori) A04.8 Chronic gastritis without bleeding, unspecified gastritis type K29.50 Gastritis type: unspecified gastritis Chronicity: chronic Gastritis bleeding: without bleeding Gastroesophageal reflux disease with esophagitis without hemorrhage K21.00 Esophagitis presence: with esophagitis Esophagitis bleeding: without hemorrhage Time Spent (min) 25 Comment 15 minutes spent with patient and additional 10 minutes spent reviewing her records
[2023-08-07 10:50] VITALS: BP 115/69; PULSE 98; BMI 26.9
== END 2023-08-07 11:32 | disposition home or self-care (01) ==
PROVIDERS: PCP Internal Medicine Geriatric Medicine; Visit Provider Nurse Practitioner Family
DX: Z87.19 Personal history of other diseases of the digestive system (principal); A04.8 Other specified bacterial intestinal infections; K29.50 Unspecified chronic gastritis without bleeding; K21.00 Gastro-esophageal reflux disease with esophagitis, without bleeding
CPT/HCPCS: 99213

== ENCOUNTER → 2023-08-07 10:43 | Outpatient (BNVA) | payer OTHER, SELFPAY | PROVIDERS: PCP Internal Medicine Geriatric Medicine; Visit Provider Nurse Practitioner Family ==

== ENCOUNTER 2023-08-21 09:12 | Outpatient (AMB) | payer OTHER, SELFPAY ==
--- NOTE | 2023-08-21 09:24 | AM.OFFVISNUR ---
Intake Intake Visit Reasons: H.pylori breath test Allergies No Known Allergies Allergy (Verified 08/07/23 10:48) Nursing Note Patient presents for collection of H Pylori breath test. Patient has been fasting for 1 hour (nothing to eat, drink, no chewing gum or smoking) has not taken any antacid medication for at least 2 weeks and has no allergies to artificial sweeteners.?? Coding Level of Care Code Established Pt Est Pt Level 1 (29658) Patient Type Established Medical Decision Making Straight Forward Diagnoses History of Corona's esophagus Z87.19 Assessment & Plan Assessment & Plan (1) History of Corona's esophagus: Code(s): Z87.19 - Personal history of other diseases of the digestive system Category: Medical Plan Patient presents for collection of H Pylori breath test. Patient has been fasting for 1 hour (nothing to eat, drink, no chewing gum or smoking) has not taken any antacid medication for at least 2 weeks and has no allergies to artificial sweeteners.???This test checks for an overgrowth of bacteria in your stomach. We all have bacteria but some may have more than others. It is treatable. if the test comes back negative there is nothing else to do. If the test result is positive we will treat you with 2 antibiotics and a medication to decrease the acid in your stomach (PPI) for 2 weeks. Two weeks after you have completed the treatment we will retest you to make sure the overgrowth has resolved. Patient Instructions: Process for specimen collection and reason for testing was explained to the patient. Specimen collection. Patient instructed to take a deep breath and then exhale into the blue bag, filling it up as much as possible. Patient instructed to drink a mixture of water and the artificial sweetener with a straw. A 15 minute wait period was observed. Patient instructed to take a deep breath and then exhale into the pink bag, filling it up as much as possible.??
== END 2023-08-21 09:25 | disposition home or self-care (01) ==
PROVIDERS: PCP Internal Medicine Geriatric Medicine; Visit Provider Nurse Practitioner Family
DX: Z87.19 Personal history of other diseases of the digestive system (principal)

== ENCOUNTER 2023-08-21 09:12 | Outpatient (REF) | payer OTHER, SELFPAY ==
[2023-08-23 12:45] LABS: H Pylori Breath Test Negative (Negative)
== END 2023-08-21 09:13 | disposition home or self-care (01) ==
LOC: HO.LNP 09:12
PROVIDERS: PCP Internal Medicine Geriatric Medicine; Visit Provider Nurse Practitioner Family
DX: Z87.19 Personal history of other diseases of the digestive system (principal)
CPT/HCPCS: 83013; 99211

== ENCOUNTER 2023-09-22 09:16 | Outpatient (REF) | payer OTHER, SELFPAY ==
[2023-09-22 11:44] LABS: Appearance Urine Cloudy; Color Urine Yellow; Glucose Urine UA Negative (Negative); Leukocyte Esterase Urine Large (3+) (Negative); Nitrite Urine Negative (Negative); PH 7.5 (5.0-9.0); UMIC TRIGGER UACC YES; Urine Blood Negative (Negative); Urine Ketones Negative (Negative); Urine Protein Negative (Neg-Trace)
[2023-09-22 11:47] LABS: Bacteria Urine 4+ (None Seen); Hyaline Casts Urine 0-2 /LPF (0-2); RBC Urine 0-2 /HPF (0-2); UACC Culture Trigger YES; WBC Urine >50 /HPF (0-5)
[2023-09-23 04:08] LABS: ~HepC Num1 0.06 S/CO (0.00-0.79); ~Hepatitis C Antibody Nonreactive (Nonreactive)
== END 2023-09-22 09:17 | disposition home or self-care (01) ==
LOC: HO.HHCL 09:16
PROVIDERS: Visit Provider Internal Medicine Geriatric Medicine
DX: Z11.59 Encounter for screening for other viral diseases (principal); R30.0 Dysuria
CPT/HCPCS: 36415; 81001; 86803; 87086; 87088; 87186

== ENCOUNTER → 2023-11-17 09:45 | Outpatient (BNV) | payer BC, SELFPAY | PROVIDERS: Visit Provider Radiology Diagnostic Radiology | DX: Z12.31 Encounter for screening mammogram for malignant neoplasm of breast (principal) | CPT/HCPCS: 77063; 77067 ==

== ENCOUNTER 2023-11-17 09:53 | Outpatient (REF) | payer BC, SELFPAY | END 2023-11-17 09:54 | disposition home or self-care (01) | LOC: HO.MAMMO 09:53 | PROVIDERS: Visit Provider Internal Medicine Geriatric Medicine | DX: Z12.31 Encounter for screening mammogram for malignant neoplasm of breast (principal) | CPT/HCPCS: 77063; 77067 ==

== ENCOUNTER 2024-02-05 09:15 | Outpatient (AMB) | payer BC, SELFPAY ==
[2024-02-05 09:18] VITALS: BP 120/66; PULSE 90; O2SAT 96; BMI 28.1
--- NOTE | 2024-02-05 09:18 | MHC.OFFVIS ---
Vital Signs 02/05/24 09:18 Height 5 ft Weight 143 lb 11.862 oz BMI 28.1 BP 120/66 Blood Pressure Location Lt brachial Position Sitting Pulse 90 Pulse Source Pulse Oximeter Pulse Oximetry (%) 96 Oxygen Delivery Method Room Air Intake Visit Reasons: 6 month follow up Intake Note: Celina presents in office today for a scheduled 6 mos FUV. CC: Pt was rx'd famotidine at their last visit. Pt reports that they have been doing well since their last visit and deny any current sx or concerns. Pt still taking nexium and having therapeutic response. Pt only taking famotidine as needed. Security Installer Required: No Allergies No Known Allergies Allergy (Verified 02/05/24 09:19) Medication List - Last Reconciled 02/05/24 by TATI Cuevas-SHAKA atorvastatin 20 mg PO DAILY denosumab (Prolia) 60 mg subcut [id number] diclofenac sodium 1% 2 grams topical DAILY esomeprazole magnesium (Nexium) 20 mg PO DAILY famotidine (Pepcid) 20 mg PO DAILY HPI HPI 6 month follow up: Details: LAST VISIT: History of Corona's esophagus Helicobacter pylori (H. pylori) Gastritis GERD (gastroesophageal reflux disease) Plan Patient will hold Nexium for now till she does breath test to check for H pylori. She can take famotidine, however stop famotidine 24-48 hours before be test. Will treat empirically if positive. Continue avoiding dietary triggers and late night snacking. Staying upright for minimum 3 hours after meals discussed with patient. Patient will return to our office in 6 months, sooner on as needed basis. She is agreeable to this plan and verbalizes understanding of instructions. She was given the opportunity to ask questions and all questions answered. ? Thank you for allowing me to participate in her care Medications New famotidine (Pepcid) 20 mg PO DAILY 30 tabs 3RF K21.9 Changed Changed From esomeprazole magnesium (Nexium) 20 mg PO BID 14 days 28 caps 0RF A04.8 Changed To esomeprazole magnesium (Nexium) 20 mg PO DAILY 30 caps 2RF A04.8 Discontinued bismuth subsalicylate Discontinued Reason: Doctor's Order 2 tabs PO QID 14 days 112 tabs 0RF A04.8 metronidazole Discontinued Reason: Doctor's Order 1,000 mg (2 x 500 mg) PO BID 56 tabs 0RF A04.8 tetracycline Discontinued Reason: Doctor's Order 1,000 mg (2 x 500 mg) PO Q12H 56 caps 0RF A04.8 TODAY'S VISIT Patient is here today for follow-up. Patient reports that she has been doing well since last time was seen. Takes Nexium in the morning and her symptoms of acid reflux are suppressed. Patient denies dyspepsia, dysphagia or odynophagia. Uses famotidine only on as needed basis. Patient denies any nausea or vomiting. Reports that she is moving his bowels well without any issues. Denies any abdominal pain or discomfort. Patient denies any GI concerning symptoms. Patient reports that she will start her Prolia injections next month for osteoporosis. [facility] Medical History Diverticulosis Tubular adenoma of colon Osteoporosis Elevated cholesterol History of Corona's esophagus Surgical History History of suburethral sling procedure Family History Mother HTN (hypertension) Heart disease Kidney failure Colon cancer Father Stomach ulcer Anemia Arthritis Social History Household Members: Other Alcohol intake: never Patient Tobacco Use Status: Never used Tobacco Review of Systems Const Denies weight gain and Denies weight loss ENT Reports no additional complaints, Denies dysphagia and Denies odynophagia Card Reports no additional complaints Resp Reports no additional complaints GI Denies abdominal pain, Denies belching, Denies melena, Denies bloating, Denies change in bowel habits, Denies dysphagia, Denies excessive flatus, Denies dyspepsia, Denies heartburn, Denies diarrhea, Denies loose stools, Denies nausea, Denies odynophagia and Denies vomiting Musc Reports no additional complaints Neuro Reports no additional complaints Psych Reports no additional complaints Endo Reports no additional complaints Physical Exam Vital Signs: Last Vital Signs Pulse 90 02/05/24 09:18 BP 120/66 02/05/24 09:18 Pulse Ox 96 02/05/24 09:18 Oxygen Delivery Method Room Air 02/05/24 09:18 BMI result Body Mass Index 28.1 Const General: healthy appearing, no acute distress and well developed Nutritional Appearance: well nourished Orientation/consciousness: patient oriented x3 Resp Effort & Inspection: normal respiratory effort, able to speak in complete sentences, no tracheal deviation and symmetric chest movement Auscultation: clear to auscultation bilaterally Cardio Rate: regular rate GI Inspection: Yes normal to inspection and No distended Palpation (GI): Soft to palpation, not firm, nontender and No hepatosplenomegaly present Auscultation: normal bowel sounds General: Yes no CVA tenderness Back/Spine/Pelvis Back: no CVA tenderness Skin General skin exam: elasticity normal, turgor normal and dry skin Neuro General: patient oriented x3 Psych Appearance: grossly normal Mental Status: mental status grossly normal Affect: normal affect Assessment & Plan Assessment & Plan (1) History of Corona's esophagus: Code(s): Z87.19 - Personal history of other diseases of the digestive system Category: Medical (2) Helicobacter pylori (H. pylori): Code(s): A04.8 - Other specified bacterial intestinal infections (3) Gastritis: Code(s): K29.70 - Gastritis, unspecified, without bleeding Qualifiers: Gastritis type: other gastritis Gastritis bleeding: without bleeding Chronicity: chronic Qualified Code(s): K29.50 - Unspecified chronic gastritis without bleeding (4) GERD (gastroesophageal reflux disease): Code(s): K21.9 - Gastro-esophageal reflux disease without esophagitis Qualifiers: Esophagitis presence: esophagitis presence not specified Qualified Code(s): K21.9 - Gastro-esophageal reflux disease without esophagitis Plan Continue Nexium daily. Avoid dietary triggers and late night snacking. Staying upright for minimum 3 hours after meals discussed with patient. Patient will follow-up in the office in 6 months, sooner on as needed basis. She is agreeable to this plan and verbalizes understanding of instructions. She was given the opportunity to ask questions and all questions answered. Thank you for allowing me to participate in her care Medications: Refilled esomeprazole magnesium (Nexium) 20 mg PO DAILY 90 caps 2RF A04.8 - Other specified bacterial intestinal infections Coding Level of Care Code Est Pt Level 3 (57368) Diagnoses History of Corona's esophagus Z87.19 Helicobacter pylori (H. pylori) A04.8 Other chronic gastritis without hemorrhage K29.50 Gastritis type: other gastritis Gastritis bleeding: without bleeding Chronicity: chronic Gastroesophageal reflux disease, unspecified whether esophagitis present K21.9 Esophagitis presence: esophagitis presence not specified Time Spent (min) 25 Comment 15 minutes spent with patient and additional 10 minutes spent reviewing her records
== END 2024-02-05 10:02 | disposition home or self-care (01) ==
PROVIDERS: PCP Internal Medicine Geriatric Medicine; Visit Provider Nurse Practitioner Family
DX: Z87.19 Personal history of other diseases of the digestive system (principal); A04.8 Other specified bacterial intestinal infections; K29.50 Unspecified chronic gastritis without bleeding; K21.9 Gastro-esophageal reflux disease without esophagitis
CPT/HCPCS: 99213

== ENCOUNTER → 2024-02-05 09:15 | Outpatient (BNVA) | payer OTHER, SELFPAY | PROVIDERS: PCP Internal Medicine Geriatric Medicine; Visit Provider Nurse Practitioner Family ==

== ENCOUNTER 2024-08-05 09:23 | Outpatient (AMB) | payer BC, SELFPAY ==
--- NOTE | 2024-08-05 09:34 | A.OFFVIS_ITS ---
Vital Signs 08/05/24 09:35 Height 5 ft Weight 144 lb 9.972 oz BMI 28.2 BP 128/84 Blood Pressure Location Rt brachial Position Sitting Pulse 88 Pulse Source Pulse Oximeter Pulse Oximetry (%) 98 Oxygen Delivery Method Room Air Intake Visit Reasons: Gastritis 6 months f/u Intake Note: ESTABLISHED PATIENT for GERD mgmt. Chief Complaint; Pt reports sx are well controlled. No active concerns at this time. Salesperson Meats Required: No Accompanied by: Self / Same As Patient Allergies No Known Allergies Allergy (Verified 08/05/24 09:38) HPI HPI Gastritis 6 months f/u: Details: LAST VISIT: History of Corona's esophagus Helicobacter pylori (H. pylori) Gastritis GERD (gastroesophageal reflux disease) Plan Continue Nexium daily. Avoid dietary triggers and late night snacking. Staying upright for minimum 3 hours after meals discussed with patient. Patient will follow-up in the office in 6 months, sooner on as needed basis. She is agreeable to this plan and verbalizes understanding of instructions. She was given the opportunity to ask questions and all questions answered. ? Thank you for allowing me to participate in her care Medications Refilled esomeprazole magnesium (Nexium) 20 mg PO DAILY 90 caps 2RF A04.8 TODAY'S VISIT: Patient is here today for follow-up. Patient reports that she has been feeling quite well since last visit. Patient denies any acid reflux, dyspepsia, dysphagia or odynophagia. She is getting [id number] Nexium and reports that is been working for her. Patient change her diet. Drinking more fluids and eating more vegetables. Denies any abdominal pain or discomfort. Denies melena, hematochezia, unintentional weight loss or ribbon like stools. Patient denies any GI concerning symptoms. [facility] Medical History Diverticulosis Tubular adenoma of colon Osteoporosis Elevated cholesterol History of Corona's esophagus Surgical History History of suburethral sling procedure Family History Mother HTN (hypertension) Heart disease Kidney failure Colon cancer Father Stomach ulcer Anemia Arthritis Social History Household Members: Other Alcohol intake: never Patient Tobacco Use Status: Never used Tobacco Review of Systems Const Denies weight gain and Denies weight loss ENT Reports no additional complaints, Denies dysphagia and Denies odynophagia Card Reports no additional complaints Resp Reports no additional complaints GI Denies abdominal pain, Denies belching, Denies melena, Denies bloating, Denies change in bowel habits, Denies dysphagia, Denies excessive flatus, Denies dyspepsia, Denies heartburn, Denies diarrhea, Denies loose stools, Denies nausea, Denies odynophagia and Denies vomiting Reports no additional complaints Musc Reports no additional complaints Neuro Reports no additional complaints Psych Reports no additional complaints Endo Reports no additional complaints Physical Exam Vital Signs: Last Vital Signs Pulse 88 08/05/24 09:35 BP 128/84 08/05/24 09:35 Pulse Ox 98 08/05/24 09:35 Oxygen Delivery Method Room Air 08/05/24 09:35 BMI result Body Mass Index 28.2 Const General: healthy appearing, no acute distress and well developed Nutritional Appearance: well nourished Orientation/consciousness: patient oriented x3 Resp Effort & Inspection: normal respiratory effort, able to speak in complete sentences, no tracheal deviation and symmetric chest movement Auscultation: clear to auscultation bilaterally Cardio Rate: regular rate GI Inspection: Yes normal to inspection and No distended Palpation (GI): Soft to palpation, not firm, nontender and No hepatosplenomegaly present Auscultation: normal bowel sounds General: Yes no CVA tenderness Back/Spine/Pelvis Back: no CVA tenderness Skin General skin exam: elasticity normal, turgor normal and dry skin Neuro General: patient oriented x3 Psych Appearance: grossly normal Mental Status: mental status grossly normal Affect: normal affect Assessment & Plan Assessment & Plan (1) History of Corona's esophagus: Code(s): Z87.19 - Personal history of other diseases of the digestive system Category: Medical (2) Helicobacter pylori (H. pylori): Code(s): A04.8 - Other specified bacterial intestinal infections (3) Gastritis: Code(s): K29.70 - Gastritis, unspecified, without bleeding Qualifiers: Chronicity: chronic Gastritis bleeding: without bleeding Gastritis type: unspecified gastritis Qualified Code(s): K29.50 - Unspecified chronic gastritis without bleeding (4) GERD (gastroesophageal reflux disease): Code(s): K21.9 - Gastro-esophageal reflux disease without esophagitis Qualifiers: Esophagitis presence: esophagitis presence not specified Qualified Code(s): K21.9 - Gastro-esophageal reflux disease without esophagitis Plan Continue Nexium daily. Avoid dietary triggers and late night snacking. Staying upright for minimum 3 hours after meals discussed with patient. Increase fluid intake and activity to promote better bowel motility. Follow-up in 6 months, sooner on as needed basis. Patient is agreeable to this plan and verbalizes understanding of instructions. She was given the opportunity to ask questions and all questions answered. Thank you for allowing me to participate in her care Coding Level of Care Code Est Pt Level 4 (09074) Complex EM visit Add On G2211 Diagnoses History of Corona's esophagus Z87.19 Helicobacter pylori (H. pylori) A04.8 Chronic gastritis without bleeding, unspecified gastritis type K29.50 Chronicity: chronic Gastritis bleeding: without bleeding Gastritis type: unspecified gastritis Gastroesophageal reflux disease, unspecified whether esophagitis present K21.9 Esophagitis presence: esophagitis presence not specified Time Spent (min) 35 Comment 20 minutes spent with patient and additional 10 minutes spent reviewing her records
[2024-08-05 09:35] VITALS: BP 128/84; PULSE 88; O2SAT 98; BMI 28.2
== END 2024-08-05 10:02 | disposition home or self-care (01) ==
PROVIDERS: PCP Internal Medicine Geriatric Medicine; Visit Provider Nurse Practitioner Family
DX: Z87.19 Personal history of other diseases of the digestive system (principal); A04.8 Other specified bacterial intestinal infections; K29.50 Unspecified chronic gastritis without bleeding; K21.9 Gastro-esophageal reflux disease without esophagitis
CPT/HCPCS: 99214

== ENCOUNTER 2024-09-28 13:54 | Outpatient (REF) | payer BC, SELFPAY ==
[2024-10-05 08:11] LABS: HPV Genotype 16 Negative (Negative); HPV Genotype 18 Negative (Negative); HPV High Risk Negative (Negative)
== END 2024-09-28 13:55 | disposition home or self-care (01) ==
LOC: HO.HHCLNP 13:54
DX: Z12.4 Encounter for screening for malignant neoplasm of cervix (principal)
CPT/HCPCS: 87626; 88175

== ENCOUNTER 2024-10-20 08:01 | Outpatient (REF) | payer BC, SELFPAY ==
--- OUTSIDE RECORDS SUMMARY | 2024-10-20 08:07 | XMS_ITS | Encounter Summary ---
Author Organization [employer] [facility] Address [address] [place] [address] Care Team Providers Care Legal Billing Clerk Name Role Phone Name, Art SANCHEZ Primary Care Provider [phone] Encounter Details Date Type Department Care Team (Late Contact Info) Description 10/28/2022 Abstract [facility] [address] [place] [id number] NameArt MD [address] [place] [id number] Social History Tobacco Use Types Packs/Day Years Used Date Smoking Tobacco: Never Smokeless Tobacco: Never Alcohol Use Standard Drinks/Week Comments Never 0 (1 standard drink = 0.6 oz pur e alcohol) Depression Answer Date Recorded Patient Health Questionnaire-9 Score 0 09/11/2022 Depression Answer Date Recorded Patient Health Questionnaire-2 Score 0 09/11/2022 Comments Unknown Sex and Gender Information Value Date Recorded Sex Assigned at Female 03/17/2022 10:16 AM EDT Legal Sex Female 10:16 AM EDT Gender Identity Female 03/17/2022 10:16 AM EDT Sexual Orientation Choose not to disclose 2021 10:16 AM EDT documented as of this encounter Plan of Treatment Upcoming Encounters Date Type Department Care Team (Late Contact Info) Description 11/01/2024 2:45 PM EDT Office Visit [facility] [address] [place] [phone] NameArt MD [address] [place] [phone] documented as of this encounter Procedures Procedure Name Priority Date/Time Associated Diagnosis Comments PAP/HPV Routine 12/08/2018 documented in this encounter Results * Pap Smear (12/08/2018) Pap Negative for intraephithelial lesion or malignancy Negative for intraephithelial lesion or malignancy, Other HPV Undetected 12/08/2018 Historical Provider HEALTH MAINTENANCE Final Result documented in this encounter Visit Diagnoses Not on filedocumented in this encounter Additional Health Concerns Assessment Noted Time PHQ-9 Depression Total Score: 0 09/12/19 23 9:18 AM EDT documented as of this encounter Care Teams Legal Billing Clerk Relationship Specialty Start Date End Date Name, MD Art [address] [place] [address] PCP - General Family Medicine 07/17/15 documented as of this encounter
[2024-10-20 09:26] LABS: Alanine Aminotransferase 24 U/L (0-31); Albumin Level 4.6 g/dL (3.5-5.0); Alkaline Phosphatase 60 U/L (39-117); Anion Gap 10 (12-20); Aspartate Amino Transferase 17 U/L (5-31); Bilirubin Total 0.5 mg/dL (0.0-1.0); Blood Urea Nitrogen 18 mg/dL (9-16); Calcium 9.5 mg/dL (8.4-10.2); Carbon Dioxide 30 mmol/L (22-29); Chloride 106 mmol/L (96-108); Cholesterol 203 mg/dL (<200); Estimated Glomerular Filt Rate > 60; Glucose Random 96 mg/dL (60-115); HDL Cholesterol 66 mg/dL (>40); LDL Cholesterol Calculated 114 mg/dL (<100); Potassium 4.1 mmol/L (3.3-5.1); Sodium 142 mmol/L (135-145); Total Protein 7.2 g/dL (6.5-8.0); Triglycerides 118 mg/dL (<150)
== END 2024-10-20 08:02 | disposition home or self-care (01) ==
LOC: HO.LAB 08:01
PROVIDERS: PCP Internal Medicine Geriatric Medicine; Visit Provider Internal Medicine Geriatric Medicine
DX: E78.00 Pure hypercholesterolemia, unspecified (principal)
CPT/HCPCS: 36415; 80053; 80061

== ENCOUNTER 2024-11-25 09:39 | Outpatient (REF) | payer BC, SELFPAY ==
--- NOTE | ~2024-11-25 | MM_ITS ---
EXAMINATION: DXA BONE DENSITY AXIAL HISTORY: 2 year f/u screen, pt has dx of osteoporosis and is on current tx. TECHNIQUE: Bonafide Dual energy absorptiometry (DEXA) of the lumbar spine, total left hip, and femoral neck was performed. COMPARISON: Comparison is made with the prior examination dated 11/14/2022. FINDINGS: The bone mineral density of the lumbar spine is 0.905 g/cm2, corresponding to a T-score of -2.3, and a Z-score of -0.6. This is indicative of osteopenia. This represents a BMD change of 6.2% compared to the prior exam. This is statistically significant. The bone mineral density of the left total hip is 0.752 g/cm2, corresponding to a T-score of -2.0, and a Z-score of -0.7. This is indicative of osteopenia. This represents a BMD change of 14.1% compared to the prior exam. This is statistically significant. The bone mineral density of the left femoral neck is 0.681 g/cm2, corresponding to a T-score of -2.6, and a Z-score of -1.0. This is indicative of osteoporosis. This represents a BMD change of 18.0% compared to the prior exam. FRACTURE RISK: The FRAX index suggests a ten year probability of major osteoporotic fracture of 14.1%, and of hip fracture 2.3%. MM/XR DEXA axial skeleton IMPRESSION: Based on bone mineral density, and according to World Health Organization (WHO) criteria, the diagnosis is consistent with osteoporosis. Statistically, 68% of repeat scans fall within 1 SD (+/- 0.010 g/cm2 for AP spine L1-L4) and 1 SD (+/- 0.012 g/cm2 for femur total) FRAX is a trademark of the [employer]'s [employer] Met[employer] Bone Disease, a World Health Organization (WHO) Collaborating Center. Electronically signed by: Salas Chan MD 11/25/2024 10:46 AM EDT
--- NOTE | ~2024-11-25 | MM_ITS ---
EXAMINATION: MM SCREENING DIGITAL BREAST TOMOSYNTHESIS, BILATERAL CLINICAL INFORMATION: Screening. Asymptomatic. COMPARISON: Mammography: Comparison is made with available priors TECHNIQUE: Digital breast mammography with tomosynthesis is performed in both the craniocaudal and mediolateral oblique views along with computer-aided detection (CAD). FINDINGS: There are scattered areas of fibroglandular density (ACR BI-RADS breast composition Category b). There are no significant masses, abnormal calcifications, or other abnormalities. MM/MM tomosynthesis screening BI IMPRESSION: No mammographic evidence of malignancy. ASSESSMENT: BI-RADS BI-RADS 1 - Negative RECOMMENDATION: Routine annual mammography screening. 1 year F/U This examination should not preclude the clinical evaluation of a suspicious palpable abnormality. This patient's information was entered into a reminder system with a target due date for their next mammogram. Electronically signed by: Bethany Whitfield DO 12/09/2024 02:14 PM EDT
--- OUTSIDE RECORDS SUMMARY | 2024-11-25 09:57 | XMS_ITS | Encounter Summary ---
Author Organization [employer] Address [address] [place] [address] Care Team Providers Care Coal Getter Name Role Phone Name, Art SANCHEZ Primary Care Provider [phone] Encounter Details Date Type Department Care Team ([facility] st Contact Info) Description 10/28/2022 Abstract [facility] [address] [place] [address] Name, MD Art [address] [place] [address] Social History Tobacco Use Types Packs/Day Years [...] as of this encounter Plan of Treatment Not on file documented as of this encounter Procedures Procedure Name Priority Date/Time Associated Diagnosis Comments PAP/HPV Routine 12/08/2018 documented in this encounter Results * Hm Pap Smear (12/08/2018) Pap Negative for intraephithelial lesion or malignancy Negative for intraephithelial lesion or malignancy, Other HPV Undetected 12/08/2018 us Historical Provider HEALTH MAINTENANCE Final Result documented in this encounter Visit Diagnoses Not on filedocumented in this encounter Additional Health Concerns Assessment Noted Time PHQ-9 Depression Total Score: 0 09/12/19 23 9:18 AM EDT documented as of this encounter Care Teams Coal Getter Relationship Specialty Start Date End Date Name, MD Art [address] [place] [address] PCP - General Family Medicine 07/17/15 documented as of this encounter
== END 2024-11-25 09:40 | disposition home or self-care (01) ==
LOC: HO.MAMMO 09:39
DX: Z12.31 Encounter for screening mammogram for malignant neoplasm of breast (principal); M81.0 Age-related osteoporosis without current pathological fracture
CPT/HCPCS: 77063; 77067; 77080

== ENCOUNTER → 2024-11-25 10:30 | Outpatient (BNV) | payer BC, SELFPAY | PROVIDERS: Visit Provider Radiology Diagnostic Radiology | DX: E28.39 Other primary ovarian failure (principal) | CPT/HCPCS: 77080 ==

== ENCOUNTER 2024-12-14 09:35 | Outpatient (REF) | payer BC, SELFPAY ==
--- NOTE | 2024-12-14 09:39 | EMG_ITS ---
Chief complaint: Numbness/tingling bilateral 3rd-5th digits, depending on sleeping position Reason for referral: Evaluate for Carpal Tunnel Syndrome versus ulnar neuropathy Referred by: Dr. Horner Procedure done: Bilateral upper extremities NCS/EMG Precautions and/or limitations: None The limb temperature was monitored continuously and remained between 32-36 degrees C during the performance of the NCS. Nerve Conduction Studies Anti Sensory Summary Table ?Stim Site NR Onset (ms) Norm Onset (ms) Peak (ms) Norm Peak (ms) O-P Amp (?V) Norm O-P Amp Site1 Site2 Delta-0 (ms) Dist (cm) James (m/s) Norm James (m/s) Right Lat Ante Brach Cutan Anti Sensory (Lat Forearm) Lat Biceps ? 1.5 1.9 11.1 Lat Biceps Lat Forearm 1.5 0.0 Right Med Ante Brach Cutan Anti Sensory (Med Forearm) Elbow ? 1.4 1.8 18.3 Elbow Med Forearm 1.4 0.0 Left Median Anti Sensory (2nd Digit) Wrist ? 2.3 3.0 <3.6 57.6 >10 Wrist 2nd Digit 2.3 14.0 61 Right Median Anti Sensory (2nd Digit) Wrist ? 2.6 3.3 <3.6 35.7 >10 Wrist 2nd Digit 2.6 14.0 54 Left Radial Anti Sensory (Thumb) Forearm ? 1.6 2.2 <3.1 38.3 Forearm Thumb 1.6 0.0 Left Ulnar Anti Sensory (5th Digit) Wrist ? 2.3 2.9 <3.7 33.5 >15.0 Wrist 5th Digit 2.3 14.0 61 Right Ulnar Anti Sensory (5th Digit) Wrist ? 2.1 2.9 <3.7 34.1 >15.0 Wrist 5th Digit 2.1 14.0 67 Motor Summary Table ?Stim Site NR Onset (ms) Norm Onset (ms) O-P Amp (mV) Norm O-P Amp iAmp (mV) Amp (1st) (%) Site1 Site2 Delta-0 (ms) Dist (cm) James (m/s) Norm James (m/s) Left Median Motor (Abd Poll Brev) Wrist ? 3.6 <3.9 4.5 >4.5 6.0 100.0 Elbow Wrist 3.5 19.5 56 >45 Elbow ? 7.1 5.2 7.0 115.6 Right Median Motor (Abd Poll Brev) Wrist ? 3.1 <3.9 8.1 >4.5 9.8 100.0 Elbow Wrist 3.7 19.0 51 >45 Elbow ? 6.8 7.2 9.1 88.9 Left Ulnar Motor (Abd Dig Minimi) Wrist ? 2.5 <3.0 6.8 >5 7.8 100.0 B Elbow Wrist 2.8 16.0 57 >45 B Elbow ? 5.3 6.4 7.4 94.1 A Elbow B Elbow 1.6 10.0 62 >45 A Elbow ? 6.9 6.1 7.0 89.7 Right Ulnar Motor (Abd Dig Minimi) Wrist ? 2.5 <3.0 9.4 >5 10.4 100.0 B Elbow Wrist 3.0 18.0 60 >45 B Elbow ? 5.5 9.2 10.2 97.9 A Elbow B Elbow 1.2 10.0 83 >45 A Elbow ? 6.7 8.9 10.0 94.7 Comparison Summary Table ?Stim Site NR Peak (ms) Norm Peak (ms) P-T Amp (?V) Site1 Site2 Delta-P (ms) Norm Delta (ms) Right Median/Radial Dig I Comparison (Digit 1 - 10cm) Median ? 2.7 <2.9 87.6 Median Radial 0.1 Radial ? 2.8 <2.8 84.2 EMG ?Side Muscle Nerve Root Ins Act Fibs Psw Amp Dur Poly Recrt Int Pat Comment Right 1stDorInt Ulnar C8-T1 Nml Nml Nml Nml Nml 0 Nml Complete Right FlexCarRad Median C6-7 Nml Nml Nml Nml Nml 0 Nml Complete Right Biceps Musculocut C5-6 Nml Nml Nml Nml Nml 0 Nml Complete Right Triceps Radial C6-7-8 Nml Nml Nml Nml Nml 0 Nml Complete Right Deltoid Axillary C5-6 Nml Nml Nml Nml Nml 0 Nml Complete Left 1stDorInt Ulnar C8-T1 Nml Nml Nml Nml Nml 0 Nml Complete Left FlexCarRad Median C6-7 Nml Nml Nml Nml Nml 0 Nml Complete Left Biceps Musculocut C5-6 Nml Nml Nml Nml Nml 0 Nml Complete Left Triceps Radial C6-7-8 Nml Nml Nml Nml Nml 0 Nml Complete Left Deltoid Axillary C5-6 Nml Nml Nml Nml Nml 0 Nml Complete FINDINGS: All motor and sensory nerves tested showed normal latencies, amplitudes and conduction velocities. Concentric needle EMG was performed in selected muscles of the bilateral upper extremities and cervical paraspinals. Study did not reveal signs of electric abnormalities as shown in the table above. IMPRESSION: 1. This is a normal study. 2. There is no electrodiagnostic evidence for median neuropathy, ulnar neuropathy, brachial plexopathy, or cervical radiculopathy. Thank you for your kind referral. Cindy Vallecillo MD, FELIZ Board Certified, [place] [employer] and [employer] (ABPMR) Board Certified, [place] Board of Electrodiagnostic Medicine (ABEM) CODIN 16836 x 2 MTDD
== END 2024-12-14 09:36 | disposition home or self-care (01) ==
LOC: HO.NEURO 09:35
PROVIDERS: Visit Provider Internal Medicine Geriatric Medicine
DX: R20.0 Anesthesia of skin (principal); R20.2 Paresthesia of skin
CPT/HCPCS: 95886; 95912

== ENCOUNTER → 2024-12-14 09:39 | Outpatient (BNV) | payer BC, SELFPAY | PROVIDERS: Visit Provider Physical Medicine & Rehabilitation | DX: G56.03 Carpal tunnel syndrome, bilateral upper limbs (principal) | CPT/HCPCS: 95886; 95912 ==